=== PATIENT | female | born 1980 | race Caucasian/White ===

== ENCOUNTER 2019-12-15 16:21 | Emergency (ER) | payer SELFPAY ==
[~2019-12-15] VITALS: Ht 157.5 cm; Wt 66.7 kg
[~2019-12-15 16:21] MED LIST: ALBU0.632 IH; ALBU17AE23 IH; ALPR1T PO; BSP5T PO; CITA10TA70 PO; CLON0.5T60 PO; DVL250TEC1 PO; HCT25T PO; HYOS0.1217 PO; LITHIUM; LVT.025T PO; PRD20T PO; PRD5T PO; PROZAC; TIOT18CA IH; TRAZ150T42 PO; ZLP10T PO
[2019-12-15 16:50] VITALS: BP 123/73
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
[2019-12-15] MEDS ORDERED: HYDR-700 PO (17:35)
[2019-12-15] MEDS ORDERED: hydrOXYzine (VISTARIL/ATARAX) 25 MG capsule/tablet PO ONE (17:45)
--- OUTSIDE RECORDS SUMMARY | 2019-12-15 20:02 | XMS REPORT | Continuity of Care Document ---
Author Organization Unknown Address Unknown Phone Unavailable Allergies Active Description Code Type Severity Reaction Onset Reported/Identified Relationship to Patient Clinical Status Yes aspirin Drug Allergy N/A N/A 11/11/2008 Yes Benadryl Drug Allergy N/A N/A 11/11/2008 Yes ibuprofen Drug Allergy N/A N/A 11/11/2008 Yes latex OA N/A N/A 11/11/2008 Yes aspirin Drug Allergy 11/11/2008 Yes Benadryl Drug Allergy 11/11/2008 Yes ibuprofen Drug Allergy 11/11/2008 Yes latex OA 11/11/2008 Yes Depakote Drug Allergy N/A N/A 10/09/2010 Yes Depakote Drug Allergy 10/09/2010 Yes [place] [facility] Allergy 04/17/2012 Medications There is no data. Problems Date Dx Coded Attending Type Code Diagnosis Diagnosed By 02/11/2008 NIA MEREDITH DO 466 .0 BRONCHITIS, ACUTE 02/11/2008 466.0 BRON CHITIS, ACUTE 02/11/2008 466.0 BRON CHITIS, ACUTE 02/11/2008 YOVANY GARCIA APRN 466.0 BRONCHITIS, ACUTE 02/11/2008 RUSSELL PEREZ DDS 466.0 BRONCHITIS, ACUTE 02/11/2008 SHARA HDZ APRN 46 6.0 BRONCHITIS, ACUTE 02/11/2008 466.0 BRON CHITIS, ACUTE 02/11/2008 466.0 BRON CHITIS, ACUTE 02/11/2008 466.0 BRON CHITIS, ACUTE 02/11/2008 466.0 BRON CHITIS, ACUTE 02/11/2008 NIA MEREDITH DO 466 .0 BRONCHITIS, ACUTE 02/11/2008 HEMANT STEWART DOA K 466.0 BRONCHITIS, ACUTE 02/11/2008 HEMANT STEWART DOA K 466.0 BRONCHITIS, ACUTE 02/11/2008 PAT ROJO EUNICE K 466.0 BRONCHITIS, ACUTE 02/11/2008 PAT ROJO EUNICE K 466.0 BRONCHITIS, ACUTE 02/14/2008 WERDER DO, NIA F 296 .90 MOOD DISORDER 02/14/2008 MASOUD ROJO NIA F 300 .00 anxiety 02/14/2008 NIA MEREDITH DO F V58 .69 MEDICATION HIGH RISK 02/14/2008 296.90 MOO D DISORDER 02/14/2008 300.00 anxiety 02/14/2008 V58.69 MED ICATION HIGH RISK 02/14/2008 296.90 MOO D DISORDER 02/14/2008 300.00 anxiety 02/14/2008 V58.69 MED ICATION HIGH RISK 02/14/2008 GARCIASeng STARKS YOVANY R 296.90 MOOD DISORDER 02/14/2008 GARCIA APRN, YOVANY R 300.00 anxiety 02/14/2008 JOSE ALEXISMary YOVANY R V58.69 MEDICATION HIGH RISK 02/14/2008 MUOGHALU DDS, RUSSELL N 296.90 MOOD DISORDER 02/14/2008 MUOGHALU DDS, RUSSELL N 300.00 anxiety 02/14/2008 MUOGHALU DDS, RUSSELL N V58.69 MEDICATION HIGH RISK 02/14/2008 WILDERBECKY STARKS SHARA A 296.90 MOOD DISORDER 02/14/2008 WILDERBECKY STARKS, SHARA A 300.00 anxiety 02/14/2008 WILDERBECKY STARKS SHARA A V58.69 MEDICATION HIGH RISK 02/14/2008 296.90 MOO D DISORDER 02/14/2008 300.00 anxiety 02/14/2008 V58.69 MED ICATION HIGH RISK 02/14/2008 296.90 MOO D DISORDER 02/14/2008 300.00 anxiety 02/14/2008 V58.69 MED ICATION HIGH RISK 02/14/2008 296.90 MOO D DISORDER 02/14/2008 300.00 anxiety 02/14/2008 V58.69 MED ICATION HIGH RISK 02/14/2008 296.90 MOO D DISORDER 02/14/2008 300.00 anxiety 02/14/2008 V58.69 MED ICATION HIGH RISK 02/14/2008 NIA MEREDITH DO F 296 .90 MOOD DISORDER 02/14/2008 NIA MEREDITH DO F 300 .00 anxiety 02/14/2008 NIA MEREDITH DO V58 .69 MEDICATION HIGH RISK 02/14/2008 EUNICE STEWART DO 296.90 MOOD DISORDER 02/14/2008 STEWART DO, EUNICE K 300.00 anxiety 02/14/2008 STEWART DO, EUNICE K V58.69 MEDICATION HIGH RISK 02/14/2008 STEWART DO, EUNICE K 296.90 MOOD DISORDER 02/14/2008 STEWART DO, EUNICE K 300.00 anxiety 02/14/2008 STEWART DO, EUNICE K V58.69 MEDICATION HIGH RISK 02/14/2008 STEWART DO, EUNICE K 296.90 MOOD DISORDER 02/14/2008 STEWART DO, EUNICE K 300.00 anxiety 02/14/2008 STEWART DO, EUNICE K V58.69 MEDICATION HIGH RISK 02/14/2008 STEWART DO, EUNICE K 296.90 MOOD DISORDER 02/14/2008 STEWART DO, EUNICE K 300.00 anxiety 02/14/2008 STEWART DO, EUNICE K V58.69 MEDICATION HIGH RISK 03/03/2008 NIA MEREDITH DO 599 .0 URINARY TRACT INFECTION 03/03/2008 NIA MEREDITH DO 788 .1 DYSURIA 03/03/2008 599.0 URIN PADILLA TRACT INFECTION 03/03/2008 788.1 DYSURIA 03/03/2008 599.0 URIN PADILLA TRACT INFECTION 03/03/2008 788.1 DYSURIA 03/03/2008 YOVANY GARCIA APRN 599.0 URINARY TRACT INFECTION 03/03/2008 YOVANY GARCIA APRN 788.1 DYSURIA 03/03/2008 RUSSELL PEREZ DDS N 599.0 URINARY TRACT INFECTION 03/03/2008 RUSSELL PEREZ DDS N 788.1 DYSURIA 03/03/2008 SHARA HDZ APRN A 59 9.0 URINARY TRACT INFECTION 03/03/2008 SHARA HDZ APRN A 78 8.1 DYSURIA 03/03/2008 599.0 URIN PADILLA TRACT INFECTION 03/03/2008 788.1 DYSURIA 03/03/2008 599.0 URIN PADILLA TRACT INFECTION 03/03/2008 788.1 DYSURIA 03/03/2008 599.0 URIN PADILLA TRACT INFECTION 03/03/2008 788.1 DYSURIA 03/03/2008 599.0 URIN PADILLA TRACT INFECTION 03/03/2008 788.1 DYSURIA 03/03/2008 WERDER DO, NIA F 599 .0 URINARY TRACT INFECTION 03/03/2008 NIA MEREDITH DO F 788 .1 DYSURIA 03/03/2008 STEWART DO, EUNICE K 599.0 URINARY TRACT INFECTION 03/03/2008 STEWART DO, EUNICE K 788.1 DYSURIA 03/03/2008 STEWART DO, EUNICE K 599.0 URINARY TRACT INFECTION 03/03/2008 STEWART DO, EUNICE K 788.1 DYSURIA 03/03/2008 STEWART DO, EUNICE K 599.0 URINARY TRACT INFECTION 03/03/2008 STEWART DO, EUNICE K 788.1 DYSURIA 03/03/2008 STEWART DO, EUNICE K 599.0 URINARY TRACT INFECTION 03/03/2008 STEWART DO, EUNICE K 788.1 DYSURIA 06/18/2008 NIA MEREDITH DO F 256 .4 POLYCYSTIC OVARIES 06/18/2008 256.4 POLY CYSTIC OVARIES 06/18/2008 256.4 POLY CYSTIC OVARIES 06/18/2008 YOVANY GARCIA APRN 256.4 POLYCYSTIC OVARIES 06/18/2008 RUSSELL PEREZ DDS N 256.4 POLYCYSTIC OVARIES 06/18/2008 SHARA HDZ APRN A 25 6.4 POLYCYSTIC OVARIES 06/18/2008 256.4 POLY CYSTIC OVARIES 06/18/2008 256.4 POLY CYSTIC OVARIES 06/18/2008 256.4 POLY CYSTIC OVARIES 06/18/2008 256.4 POLY CYSTIC OVARIES 06/18/2008 NIA MEREDITH DO F 256 .4 POLYCYSTIC OVARIES 06/18/2008 STEWART DO, EUNICE K 256.4 POLYCYSTIC OVARIES 06/18/2008 STEWART DO, EUNICE K 256.4 POLYCYSTIC OVARIES 06/18/2008 STEWART DO, EUNICE K 256.4 POLYCYSTIC OVARIES 06/18/2008 STEWART DO, EUNICE K 256.4 POLYCYSTIC OVARIES 09/07/2008 NIA MEREDITH DO 493 .90 ASTHMA UNSPECIFIED 09/07/2008 NIA MEREDITH DO 786 .05 SHORTNESS OF BREATH 09/07/2008 493.90 AST HMA UNSPECIFIED 09/07/2008 786.05 ANA RTNESS OF BREATH 09/07/2008 493.90 AST HMA UNSPECIFIED 09/07/2008 786.05 ANA RTNESS OF BREATH 09/07/2008 YOVANY GARCIA APRN 493.90 ASTHMA UNSPECIFIED 09/07/2008 YOVANY GARCIA APRN 786.05 SHORTNESS OF BREATH 09/07/2008 JARRELLHALBartolo ALCANTARS, RUSSELL N 493.90 ASTHMA UNSPECIFIED 09/07/2008 KYOGHALBartolo ALCANTARS, RUSSELL N 786.05 SHORTNESS OF BREATH 09/07/2008 YANCY HDZ APRNIDI A 493.90 ASTHMA UNSPECIFIED 09/07/2008 WILDER STARKS, SHARA A 786.05 SHORTNESS OF BREATH 09/07/2008 493.90 AST HMA UNSPECIFIED 09/07/2008 786.05 ANA RTNESS OF BREATH 09/07/2008 493.90 AST HMA UNSPECIFIED 09/07/2008 786.05 ANA RTNESS OF BREATH 09/07/2008 493.90 AST HMA UNSPECIFIED 09/07/2008 786.05 ANA RTNESS OF BREATH 09/07/2008 493.90 AST HMA UNSPECIFIED 09/07/2008 786.05 ANA RTNESS OF BREATH 09/07/2008 NIA MEREDITH DO F 493 .90 ASTHMA UNSPECIFIED 09/07/2008 NIA MEREDITH DO F 786 .05 SHORTNESS OF BREATH 09/07/2008 STEWART DO, EUNICE K 493.90 ASTHMA UNSPECIFIED 09/07/2008 STEWART DO, EUNICE K 786.05 SHORTNESS OF BREATH 09/07/2008 STEWART DO, EUNICE K 493.90 ASTHMA UNSPECIFIED 09/07/2008 STEWART DO, EUNICE K 786.05 SHORTNESS OF BREATH 09/07/2008 STEWART DO, EUNICE K 493.90 ASTHMA UNSPECIFIED 09/07/2008 STEWART DO, EUNICE K 786.05 SHORTNESS OF BREATH 09/07/2008 STEWART DO, EUNICE K 493.90 ASTHMA UNSPECIFIED 09/07/2008 STEWART DO, EUNICE K 786.05 SHORTNESS OF BREATH 06/29/2009 NIA MEREDITH DO F 461 .9 ACUTE SINUSITIS, UNSPECIFIED 06/29/2009 461.9 ACUT E SINUSITIS, UNSPECIFIED 06/29/2009 461.9 ACUT E SINUSITIS, UNSPECIFIED 06/29/2009 YOVANY GARCIA APRN 461.9 ACUTE SINUSITIS, UNSPECIFIED 06/29/2009 RUSSELL PEREZ DDS N 461.9 ACUTE SINUSITIS, UNSPECIFIED 06/29/2009 SHARA HDZ APRN A 46 1.9 ACUTE SINUSITIS, UNSPECIFIED 06/29/2009 461.9 ACUT E SINUSITIS, UNSPECIFIED 06/29/2009 461.9 ACUT E SINUSITIS, UNSPECIFIED 06/29/2009 461.9 ACUT E SINUSITIS, UNSPECIFIED 06/29/2009 461.9 ACUT E SINUSITIS, UNSPECIFIED 06/29/2009 NIA MEREDITH DO F 461 .9 ACUTE SINUSITIS, UNSPECIFIED 06/29/2009 STEWART DO, EUNICE K 461.9 ACUTE SINUSITIS, UNSPECIFIED 06/29/2009 STEWART DO, EUNICE K 461.9 ACUTE SINUSITIS, UNSPECIFIED 06/29/2009 STEWART DO, EUNICE K 461.9 ACUTE SINUSITIS, UNSPECIFIED 06/29/2009 STEWART DO, EUNICE K 461.9 ACUTE SINUSITIS, UNSPECIFIED 08/31/2009 NIA MEREDITH DO F 569 .3 RECTAL HEMORRHAGE 08/31/2009 NIA MEREDITH DO F 787 .91 CHRONIC DIARRHEA OF UNKNOWN ORIGIN 08/31/2009 NIA MEREDITH DO 789 .00 abdominal pain feels crampy / colicky 08/31/2009 569.3 RECT AL HEMORRHAGE 08/31/2009 787.91 CHR ONIC DIARRHEA OF UNKNOWN ORIGIN 08/31/2009 789.00 abd ominal pain feels crampy / colicky 08/31/2009 569.3 RECT AL HEMORRHAGE 08/31/2009 787.91 CHR ONIC DIARRHEA OF UNKNOWN ORIGIN 08/31/2009 789.00 abd ominal pain feels crampy / colicky 08/31/2009 YOVANY GARCIA APRN 569.3 RECTAL HEMORRHAGE 08/31/2009 YOVANY GARCIA APRN 787.91 CHRONIC DIARRHEA OF UNKNOWN ORIGIN 08/31/2009 YOVANY GARCIA APRN 789.00 abdominal pain feels crampy / colicky 08/31/2009 MUOGHALRUSSELL Mcfarland DDS N 569.3 RECTAL HEMORRHAGE 08/31/2009 YKOGHALU RUSSELL ALLISON N 787.91 CHRONIC DIARRHEA OF UNKNOWN ORIGIN 08/31/2009 KYOGHALU ESTEFANY, RUSSELL N 789.00 abdominal pain feels crampy / colicky 08/31/2009 WILDER STARKS SHARA A 56 9.3 RECTAL HEMORRHAGE 08/31/2009 WILDER STARKS, SHARA A 787.91 CHRONIC DIARRHEA OF UNKNOWN ORIGIN 08/31/2009 YANCY HDZ APRNIDI A 789.00 abdominal pain feels crampy / colicky 08/31/2009 569.3 RECT AL HEMORRHAGE 08/31/2009 787.91 CHR ONIC DIARRHEA OF UNKNOWN ORIGIN 08/31/2009 789.00 abd ominal pain feels crampy / colicky 08/31/2009 569.3 RECT AL HEMORRHAGE 08/31/2009 787.91 CHR ONIC DIARRHEA OF UNKNOWN ORIGIN 08/31/2009 789.00 abd ominal pain feels crampy / colicky 08/31/2009 569.3 RECT AL HEMORRHAGE 08/31/2009 787.91 CHR ONIC DIARRHEA OF UNKNOWN ORIGIN 08/31/2009 789.00 abd ominal pain feels crampy / colicky 08/31/2009 569.3 RECT AL HEMORRHAGE 08/31/2009 787.91 CHR ONIC DIARRHEA OF UNKNOWN ORIGIN 08/31/2009 789.00 abd ominal pain feels crampy / colicky 08/31/2009 NIA MEREDITH DO F 569 .3 RECTAL HEMORRHAGE 08/31/2009 NIA MEREDITH DO F 787 .91 CHRONIC DIARRHEA OF UNKNOWN ORIGIN 08/31/2009 NIA MEREDITH DO F 789 .00 abdominal pain feels crampy / colicky 08/31/2009 EUNICE STEWART DO K 569.3 RECTAL HEMORRHAGE 08/31/2009 EUNICE STEWART DO K 787.91 CHRONIC DIARRHEA OF UNKNOWN ORIGIN 08/31/2009 HEMANT STEWART DOA K 789.00 abdominal pain feels crampy / colicky 08/31/2009 HEMANT STEWART DOA K 569.3 RECTAL HEMORRHAGE 08/31/2009 HEMANT STEWART DOA K 787.91 CHRONIC DIARRHEA OF UNKNOWN ORIGIN 08/31/2009 HEMANT STEWART DOA K 789.00 abdominal pain feels crampy / colicky 08/31/2009 HEMANT STEWART DOA K 569.3 RECTAL HEMORRHAGE 08/31/2009 HEMANT STEWART DOA K 787.91 CHRONIC DIARRHEA OF UNKNOWN ORIGIN 08/31/2009 EUNICE STEWART DO K 789.00 abdominal pain feels crampy / colicky 08/31/2009 PAT ROJOEUNICE K 569.3 RECTAL HEMORRHAGE 08/31/2009 PAT ROJOEUNICE K 787.91 CHRONIC DIARRHEA OF UNKNOWN ORIGIN 08/31/2009 PAT ROJOEUNICE 789.00 abdominal pain feels crampy / colicky 09/12/2010 TOMMOTLEY NIA F 305 .1 TOBACCO ABUSE 09/12/2010 ED MEREDITH DOEN F 309 .29 EXCITABILITY 09/12/2010 MASOUD ROJO NIA F 780 .50 SLEEP DISTURBANCE, UNSPECIFIED 09/12/2010 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1 TOBACCO ABUSE 09/12/2010 SHARA HDZ APRN A 309.29 EXCITABILITY 09/12/2010 SHARA HDZ APRN 780.50 SLEEP DISTURBANCE, UNSPECIFIED 09/12/2010 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 09/12/2010 309.29 EXC ITABILITY 09/12/2010 780.50 SLE EP DISTURBANCE, UNSPECIFIED 09/12/2010 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 09/12/2010 309.29 EXC ITABILITY 09/12/2010 780.50 SLE EP DISTURBANCE, UNSPECIFIED 09/12/2010 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 09/12/2010 309.29 EXC ITABILITY 09/12/2010 780.50 SLE EP DISTURBANCE, UNSPECIFIED 09/12/2010 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 09/12/2010 309.29 EXC ITABILITY 09/12/2010 780.50 SLE EP DISTURBANCE, UNSPECIFIED 09/12/2010 TOMEVARISTO NIA F 305 .1 TOBACCO ABUSE 09/12/2010 MASOUD ROJO NIA F 309 .29 EXCITABILITY 09/12/2010 MASOUD ROJO NIA F 780 .50 SLEEP DISTURBANCE, UNSPECIFIED 09/12/2010 STEWART DO, EUNICE K 305.1 TOBACCO ABUSE 09/12/2010 STEWART DO, EUNICE K 309.29 EXCITABILITY 09/12/2010 STEWART DO, EUNICE K 780.50 SLEEP DISTURBANCE, UNSPECIFIED 09/12/2010 STEWART DO, EUNICE K 305.1 TOBACCO ABUSE 09/12/2010 STEWART DO, EUNICE K 309.29 EXCITABILITY 09/12/2010 STEWART DO, EUNICE K 780.50 SLEEP DISTURBANCE, UNSPECIFIED 09/12/2010 STEWART DO, EUNICE K 305.1 TOBACCO ABUSE 09/12/2010 STEWART DO, EUNICE K 309.29 EXCITABILITY 09/12/2010 STEWART DO, EUNICE K 780.50 SLEEP DISTURBANCE, UNSPECIFIED 09/12/2010 STEWART DO, EUNICE K 305.1 TOBACCO ABUSE 09/12/2010 STEWART DO, EUNICE K 309.29 EXCITABILITY 09/12/2010 STEWART DO, EUNICE K 780.50 SLEEP DISTURBANCE, UNSPECIFIED 10/23/2010 NIA MEREDITH DO F 296 .00 BIPOLAR I DISORDER SINGLE MANIC EPISODE UNSPECIFIED 10/23/2010 296.00 BIP OLAR I DISORDER SINGLE MANIC EPISODE UNSPECIFIED 10/23/2010 296.00 BIP OLAR I DISORDER SINGLE MANIC EPISODE UNSPECIFIED 10/23/2010 YOVANY GARCIA APRN 296.00 BIPOLAR I DISORDER SINGLE MANIC EPISODE UNSPECIFIED 10/23/2010 RUSSELL PEREZ DDS 296.00 BIPOLAR I DISORDER SINGLE MANIC EPISODE UNSPECIFIED 10/23/2010 SHARA HDZ APRN 296.00 BIPOLAR I DISORDER SINGLE MANIC EPISODE UNSPECIFIED 10/23/2010 296.00 BIP OLAR I DISORDER SINGLE MANIC EPISODE UNSPECIFIED 10/23/2010 296.00 BIP OLAR I DISORDER SINGLE MANIC EPISODE UNSPECIFIED 10/23/2010 296.00 BIP OLAR I DISORDER SINGLE MANIC EPISODE UNSPECIFIED 10/23/2010 296.00 BIP OLAR I DISORDER SINGLE MANIC EPISODE UNSPECIFIED 10/23/2010 NIA MEREDITH DO F 296 .00 BIPOLAR I DISORDER SINGLE MANIC EPISODE UNSPECIFIED 10/23/2010 EUNICE STEWART DO K 296.00 BIPOLAR I DISORDER SINGLE MANIC EPISODE UNSPECIFIED 10/23/2010 EUNICE STEWART DO K 296.00 BIPOLAR I DISORDER SINGLE MANIC EPISODE UNSPECIFIED 10/23/2010 EUNICE STEWART DO K 296.00 BIPOLAR I DISORDER SINGLE MANIC EPISODE UNSPECIFIED 10/23/2010 EUNICE STEWART DO K 296.00 BIPOLAR I DISORDER SINGLE MANIC EPISODE UNSPECIFIED 10/30/2010 NIA MEREDITH DO F 296 .89 MO BIPOLAR II 10/30/2010 NIA MEREDITH DO F 309 .81 AN PTSD 10/30/2010 296.89 MO BIPOLAR II 10/30/2010 309.81 AN PTSD 10/30/2010 296.89 MO BIPOLAR II 10/30/2010 309.81 AN PTSD 10/30/2010 YOVANY GARCIA APRN R 296.89 MO BIPOLAR II 10/30/2010 YOVANY GARCIA APRN 309.81 AN PTSD 10/30/2010 RUSSELL PEREZ DDS N 296.89 MO BIPOLAR II 10/30/2010 MERCEDES PEREZ DDSRA N 309.81 AN PTSD 10/30/2010 SHARA HDZ APRN A 296.89 MO BIPOLAR II 10/30/2010 SHARA HDZ APRN A 309.81 AN PTSD 10/30/2010 296.89 MO BIPOLAR II 10/30/2010 309.81 AN PTSD 10/30/2010 296.89 MO BIPOLAR II 10/30/2010 309.81 AN PTSD 10/30/2010 296.89 MO BIPOLAR II 10/30/2010 309.81 AN PTSD 10/30/2010 296.89 MO BIPOLAR II 10/30/2010 309.81 AN PTSD 10/30/2010 NIA MEREDITH DO F 296 .89 MO BIPOLAR II 10/30/2010 NIA MEREDITH DO F 309 .81 AN PTSD 10/30/2010 EUNICE STEWART DO K 296.89 MO BIPOLAR II 10/30/2010 EUNICE STEWART DO K 309.81 AN PTSD 10/30/2010 EUNICE STEWART DO K 296.89 MO BIPOLAR II 10/30/2010 STEWART DO, EUNICE K 309.81 AN PTSD 10/30/2010 STEWART DO, EUNICE K 296.89 MO BIPOLAR II 10/30/2010 STEWART DO, EUNICE K 309.81 AN PTSD 10/30/2010 STEWART DO, EUNICE K 296.89 MO BIPOLAR II 10/30/2010 STEWART DO, EUNICE K 309.81 AN PTSD 11/24/2010 NIA MEREDITH DO F 287 .0 ALLERGIC PURPURA 11/24/2010 NIA MEREDITH DO F 995 .27 OTHER DRUG ALLERGY 11/24/2010 287.0 DIMAS RGIC PURPURA 11/24/2010 995.27 OTH ER DRUG ALLERGY 11/24/2010 287.0 DIMAS RGIC PURPURA 11/24/2010 995.27 OTH ER DRUG ALLERGY 11/24/2010 GARCIAZA STARKS YOVANY R 287.0 ALLERGIC PURPURA 11/24/2010 GARCIA RAUDEL YOVANY R 995.27 OTHER DRUG ALLERGY 11/24/2010 MUOGHALU DDS, RUSSELL N 287.0 ALLERGIC PURPURA 11/24/2010 MUOGHALU DDS, RUSSELL N 995.27 OTHER DRUG ALLERGY 11/24/2010 WILDER DOCTOR OSTEOPATHIC, SHARA A 28 7.0 ALLERGIC PURPURA 11/24/2010 WILDER DOCTOR OSTEOPATHIC, SHARA A 995.27 OTHER DRUG ALLERGY 11/24/2010 287.0 DIMAS RGIC PURPURA 11/24/2010 995.27 OTH ER DRUG ALLERGY 11/24/2010 287.0 DIMAS RGIC PURPURA 11/24/2010 995.27 OTH ER DRUG ALLERGY 11/24/2010 287.0 DIMAS RGIC PURPURA 11/24/2010 995.27 OTH ER DRUG ALLERGY 11/24/2010 287.0 DIMAS RGIC PURPURA 11/24/2010 995.27 OTH ER DRUG ALLERGY 11/24/2010 NIA MEREDITH DO F 287 .0 ALLERGIC PURPURA 11/24/2010 NIA MEREDITH DO F 995 .27 OTHER DRUG ALLERGY 11/24/2010 STEWART DO, EUNICE K 287.0 ALLERGIC PURPURA 11/24/2010 STEWART DO, EUNICE K 995.27 OTHER DRUG ALLERGY 11/24/2010 STEWART DO EUNICE K 287.0 ALLERGIC PURPURA 11/24/2010 STEWART DO EUNICE K 995.27 OTHER DRUG ALLERGY 11/24/2010 STEWART DO, EUNICE K 287.0 ALLERGIC PURPURA 11/24/2010 STEWART DO, EUNICE K 995.27 OTHER DRUG ALLERGY 11/24/2010 STEWART DO, EUNICE K 287.0 ALLERGIC PURPURA 11/24/2010 STEWART DO, EUNICE K 995.27 OTHER DRUG ALLERGY 01/24/2011 NIA MEREDITH DO F 244 .9 HYPOTHYROIDISM 01/24/2011 244.9 HYPO THYROIDISM 01/24/2011 244.9 HYPO THYROIDISM 01/24/2011 YOVANY GARCIA APRN 244.9 HYPOTHYROIDISM 01/24/2011 RUSSELL PEREZ DDS N 244.9 HYPOTHYROIDISM 01/24/2011 SHARA HDZ APRN 24 4.9 HYPOTHYROIDISM 01/24/2011 244.9 HYPO THYROIDISM 01/24/2011 244.9 HYPO THYROIDISM 01/24/2011 244.9 HYPO THYROIDISM 01/24/2011 244.9 HYPO THYROIDISM 01/24/2011 NIA MEREDITH DO F 244 .9 HYPOTHYROIDISM 01/24/2011 STEWART DO, EUNICE K 244.9 HYPOTHYROIDISM 01/24/2011 STEWART DO, EUNICE K 244.9 HYPOTHYROIDISM 01/24/2011 STEWART DO, EUNICE K 244.9 HYPOTHYROIDISM 01/24/2011 STEWART DO, EUNICE K 244.9 HYPOTHYROIDISM 06/19/2011 NIA MEREDITH DO F 784 .2 SWELLING MASS OR LUMP IN HEAD AND NECK 06/19/2011 784.2 SWEL LING MASS OR LUMP IN HEAD AND NECK 06/19/2011 784.2 SWEL LING MASS OR LUMP IN HEAD AND NECK 06/19/2011 YOVANY GARCIA APRN 784.2 SWELLING MASS OR LUMP IN HEAD AND NECK 06/19/2011 RUSSELL PEREZ DDS N 784.2 SWELLING MASS OR LUMP IN HEAD AND NECK 06/19/2011 SHARA HDZ APRN A 78 4.2 SWELLING MASS OR LUMP IN HEAD AND NECK 06/19/2011 784.2 SWEL LING MASS OR LUMP IN HEAD AND NECK 06/19/2011 784.2 SWEL LING MASS OR LUMP IN HEAD AND NECK 06/19/2011 784.2 SWEL LING MASS OR LUMP IN HEAD AND NECK 06/19/2011 784.2 SWEL LING MASS OR LUMP IN HEAD AND NECK 06/19/2011 NIA MEREDITH DO F 784 .2 SWELLING MASS OR LUMP IN HEAD AND NECK 06/19/2011 EUNICE STEWART DO K 784.2 SWELLING MASS OR LUMP IN HEAD AND NECK 06/19/2011 STEWART DO, EUNICE K 784.2 SWELLING MASS OR LUMP IN HEAD AND NECK 06/19/2011 STEWART HEMANT ROJOA K 784.2 SWELLING MASS OR LUMP IN HEAD AND NECK 06/19/2011 STEWART , EUNICE K 784.2 SWELLING MASS OR LUMP IN HEAD AND NECK 2011 NIA MEREDITH DO 533 .90 PEPTIC ULCER OF UNSPECIFIED SITE UNSPECIFIED ACUTE OR CHRONIC WITHOUT HEMORRHAGE OR PERFORATION WITHOUT OBSTRUCTION 2011 533.90 PEP TIC ULCER OF UNSPECIFIED SITE UNSPECIFIED ACUTE OR CHRONIC WITHOUT HEMORRHAGE OR PERFORATION WITHOUT OBSTRUCTION 2011 533.90 PEP TIC ULCER OF UNSPECIFIED SITE UNSPECIFIED ACUTE OR CHRONIC WITHOUT HEMORRHAGE OR PERFORATION WITHOUT OBSTRUCTION 2011 YOVANY GARCIA APRN 533.90 PEPTIC ULCER OF UNSPECIFIED SITE UNSPECI FIED ACUTE OR CHRONIC WITHOUT HEMORRHAGE OR PERFORATION WITHOUT OBSTRUCTION 2011 RUSSELL PEREZ DDS 533.90 PEPTIC ULCER OF UNSPECIFIED SITE UNSPECI FIED ACUTE OR CHRONIC WITHOUT HEMORRHAGE OR PERFORATION WITHOUT OBSTRUCTION 2011 SHARA HDZ APRN 533.90 PEPTIC ULCER OF UNSPECIFIED SITE UNSPECI FIED ACUTE OR CHRONIC WITHOUT HEMORRHAGE OR PERFORATION WITHOUT OBSTRUCTION 2011 533.90 PEP TIC ULCER OF UNSPECIFIED SITE UNSPECIFIED ACUTE OR CHRONIC WITHOUT HEMORRHAGE OR PERFORATION WITHOUT OBSTRUCTION 2011 533.90 PEP TIC ULCER OF UNSPECIFIED SITE UNSPECIFIED ACUTE OR CHRONIC WITHOUT HEMORRHAGE OR PERFORATION WITHOUT OBSTRUCTION 2011 533.90 PEP TIC ULCER OF UNSPECIFIED SITE UNSPECIFIED ACUTE OR CHRONIC WITHOUT HEMORRHAGE OR PERFORATION WITHOUT OBSTRUCTION 2011 533.90 PEP TIC ULCER OF UNSPECIFIED SITE UNSPECIFIED ACUTE OR CHRONIC WITHOUT HEMORRHAGE OR PERFORATION WITHOUT OBSTRUCTION 2011 NIA MEREDITH DO 533 .90 PEPTIC ULCER OF UNSPECIFIED SITE UNSPECIFIED ACUTE OR CHRONIC WITHOUT HEMORRHAGE OR PERFORATION WITHOUT OBSTRUCTION 2011 EUNICE STEWART DO 533.90 PEPTIC ULCER OF UNSPECIFIED SITE UNSPECIFIED ACUTE OR CHRONIC WITHOUT HEMORRHAGE OR PERFORATION WITHOUT OBSTRUCTION 2011 EUNICE STEWART DO 533.90 PEPTIC ULCER OF UNSPECIFIED SITE UNSPECIFIED ACUTE OR CHRONIC WITHOUT HEMORRHAGE OR PERFORATION WITHOUT OBSTRUCTION 2011 EUNICE STEWART DO K 533.90 PEPTIC ULCER OF UNSPECIFIED SITE UNSPECIFIED ACUTE OR CHRONIC WITHOUT HEMORRHAGE OR PERFORATION WITHOUT OBSTRUCTION 2011 EUNICE STEWART DO Lefty 533.90 PEPTIC ULCER OF UNSPECIFIED SITE UNSPECIFIED ACUTE OR CHRONIC WITHOUT HEMORRHAGE OR PERFORATION WITHOUT OBSTRUCTION 12/17/2011 NIA MEREDITH DO F 625 .6 STRESS INCONTINENCE FEMALE 12/17/2011 NIA MEREDITH DO F 788 .20 RETENTION OF URINE UNSPECIFIED 12/17/2011 NIA MEREDITH DO Arlyn V76 .2 CERVICAL CANCER SCREENING (PAP SMEAR) 12/17/2011 625.6 STRE SS INCONTINENCE FEMALE 12/17/2011 788.20 RET ENTION OF URINE UNSPECIFIED 12/17/2011 V76.2 CERV ICAL CANCER SCREENING (PAP SMEAR) 12/17/2011 625.6 STRE SS INCONTINENCE FEMALE 12/17/2011 788.20 RET ENTION OF URINE UNSPECIFIED 12/17/2011 V76.2 CERV ICAL CANCER SCREENING (PAP SMEAR) 12/17/2011 YOVANY GARCIA APRN 625.6 STRESS INCONTINENCE FEMALE 12/17/2011 YOVANY GARCIA APRN 788.20 RETENTION OF URINE UNSPECIFIED 12/17/2011 YOVANY GARCIA APRN V76.2 CERVICAL CANCER SCREENING (PAP SMEAR) 12/17/2011 RUSSELL PEREZ DDS N 625.6 STRESS INCONTINENCE FEMALE 12/17/2011 RUSSELL PEERZ DDS N 788.20 RETENTION OF URINE UNSPECIFIED 12/17/2011 RUSSELL PEREZ DDS N V76.2 CERVICAL CANCER SCREENING (PAP SMEAR) 12/17/2011 SHARA HDZ APRN A 62 5.6 STRESS INCONTINENCE FEMALE 12/17/2011 SHARA HDZ APRN 788.20 RETENTION OF URINE UNSPECIFIED 12/17/2011 SHARA HDZ APRN V7 6.2 CERVICAL CANCER SCREENING (PAP SMEAR) 12/17/2011 625.6 STRE SS INCONTINENCE FEMALE 12/17/2011 788.20 RET ENTION OF URINE UNSPECIFIED 12/17/2011 V76.2 CERV ICAL CANCER SCREENING (PAP SMEAR) 12/17/2011 625.6 STRE SS INCONTINENCE FEMALE 12/17/2011 788.20 RET ENTION OF URINE UNSPECIFIED 12/17/2011 V76.2 CERV ICAL CANCER SCREENING (PAP SMEAR) 12/17/2011 625.6 STRE SS INCONTINENCE FEMALE 12/17/2011 788.20 RET ENTION OF URINE UNSPECIFIED 12/17/2011 V76.2 CERV ICAL CANCER SCREENING (PAP SMEAR) 12/17/2011 625.6 STRE SS INCONTINENCE FEMALE 12/17/2011 788.20 RET ENTION OF URINE UNSPECIFIED 12/17/2011 V76.2 CERV ICAL CANCER SCREENING (PAP SMEAR) 12/17/2011 NIA MEREDITH DO 625 .6 STRESS INCONTINENCE FEMALE 12/17/2011 NIA MEREDITH DO 788 .20 RETENTION OF URINE UNSPECIFIED 12/17/2011 NIA MEREDITH DO V76 .2 CERVICAL CANCER SCREENING (PAP SMEAR) 12/17/2011 PAT ROJO EUNICE K 625.6 STRESS INCONTINENCE FEMALE 12/17/2011 PAT ROJO, EUNICE K 788.20 RETENTION OF URINE UNSPECIFIED 12/17/2011 STEWART DO, EUNICE K V76.2 CERVICAL CANCER SCREENING (PAP SMEAR) 12/17/2011 STEWART DO EUNICE K 625.6 STRESS INCONTINENCE FEMALE 12/17/2011 STEWART DO, EUNICE K 788.20 RETENTION OF URINE UNSPECIFIED 12/17/2011 STEWART DO, EUNICE K V76.2 CERVICAL CANCER SCREENING (PAP SMEAR) 12/17/2011 STEWART DO EUNICE K 625.6 STRESS INCONTINENCE FEMALE 12/17/2011 STEWART DO, EUNICE K 788.20 RETENTION OF URINE UNSPECIFIED 12/17/2011 STEWART DO, EUNICE K V76.2 CERVICAL CANCER SCREENING (PAP SMEAR) 12/17/2011 STEWART DO EUNICE K 625.6 STRESS INCONTINENCE FEMALE 12/17/2011 STEWART DO, EUNICE K 788.20 RETENTION OF URINE UNSPECIFIED 12/17/2011 STEWART DO, EUNICE K V76.2 CERVICAL CANCER SCREENING (PAP SMEAR) 12/24/2011 NIA MEREDITH DO 578 .1 HEMATOCHEZIA 12/24/2011 NIA MEREDITH DO 780 .60 FEVER, UNSPECIFIED 12/24/2011 NIA MEREDITH DO F 787 .01 NAUSEA WITH VOMITING 12/24/2011 NIA MEREDITH DO F 789 .07 ABDOMINAL PAIN GENERALIZED 12/24/2011 578.1 JABIER TOCHEZIA 12/24/2011 780.60 FEV ER, UNSPECIFIED 12/24/2011 787.01 REGULO SEA WITH VOMITING 12/24/2011 789.07 ABD OMINAL PAIN GENERALIZED 12/24/2011 578.1 JABIER TOCHEZIA 12/24/2011 780.60 FEV ER, UNSPECIFIED 12/24/2011 787.01 REGULO SEA WITH VOMITING 12/24/2011 789.07 ABD OMINAL PAIN GENERALIZED 12/24/2011 YOVANY GARCIA APRN 578.1 HEMATOCHEZIA 12/24/2011 YOVANY GARCIA APRN 780.60 FEVER, UNSPECIFIED 12/24/2011 YOVANY GARCIA APRN 787.01 NAUSEA WITH VOMITING 12/24/2011 YOVANY GARCIA APRN 789.07 ABDOMINAL PAIN GENERALIZED 12/24/2011 MUOGHALU DDS, RUSSELL N 578.1 HEMATOCHEZIA 12/24/2011 MUOGHALU DDS, RUSSELL N 780.60 FEVER, UNSPECIFIED 12/24/2011 MUOGHALU DDS, RUSSELL N 787.01 NAUSEA WITH VOMITING 12/24/2011 MUOGHALU DDS, RUSSELL N 789.07 ABDOMINAL PAIN GENERALIZED 12/24/2011 SHARA HDZ APRN A 57 8.1 HEMATOCHEZIA 12/24/2011 SHARA HDZ APRN A 780.60 FEVER, UNSPECIFIED 12/24/2011 WILDER STARKS, SHARA A 787.01 NAUSEA WITH VOMITING 12/24/2011 YANCY HDZ APRNIDI A 789.07 ABDOMINAL PAIN GENERALIZED 12/24/2011 578.1 JABIER TOCHEZIA 12/24/2011 780.60 FEV ER, UNSPECIFIED 12/24/2011 787.01 REGULO SEA WITH VOMITING 12/24/2011 789.07 ABD OMINAL PAIN GENERALIZED 12/24/2011 578.1 JABIER TOCHEZIA 12/24/2011 780.60 FEV ER, UNSPECIFIED 12/24/2011 787.01 REGULO SEA WITH VOMITING 12/24/2011 789.07 ABD OMINAL PAIN GENERALIZED 12/24/2011 578.1 JABIER TOCHEZIA 12/24/2011 780.60 FEV ER, UNSPECIFIED 12/24/2011 787.01 REGULO SEA WITH VOMITING 12/24/2011 789.07 ABD OMINAL PAIN GENERALIZED 12/24/2011 578.1 JABIER TOCHEZIA 12/24/2011 780.60 FEV ER, UNSPECIFIED 12/24/2011 787.01 REGULO SEA WITH VOMITING 12/24/2011 789.07 ABD OMINAL PAIN GENERALIZED 12/24/2011 WERDER DONIA F 578 .1 HEMATOCHEZIA 12/24/2011 TOMDER NIA ROJO F 780 .60 FEVER, UNSPECIFIED 12/24/2011 TOMDER DONIA F 787 .01 NAUSEA WITH VOMITING 12/24/2011 NIA MEREDITH DO F 789 .07 ABDOMINAL PAIN GENERALIZED 12/24/2011 STEWART DO, EUNICE K 578.1 HEMATOCHEZIA 12/24/2011 STEWART DO, EUNICE K 780.60 FEVER, UNSPECIFIED 12/24/2011 STEWART DO, EUNICE K 787.01 NAUSEA WITH VOMITING 12/24/2011 STEWART DO, EUNICE K 789.07 ABDOMINAL PAIN GENERALIZED 12/24/2011 STEWART DO, EUNICE K 578.1 HEMATOCHEZIA 12/24/2011 STEWART DO, EUNICE K 780.60 FEVER, UNSPECIFIED 12/24/2011 STEWART DO, EUNICE K 787.01 NAUSEA WITH VOMITING 12/24/2011 STEWART DO, EUNICE K 789.07 ABDOMINAL PAIN GENERALIZED 12/24/2011 STEWART DO, EUNICE K 578.1 HEMATOCHEZIA 12/24/2011 STEWART DO, EUNICE K 780.60 FEVER, UNSPECIFIED 12/24/2011 STEWART DO, EUNICE K 787.01 NAUSEA WITH VOMITING 12/24/2011 STEWART DO, EUNICE K 789.07 ABDOMINAL PAIN GENERALIZED 12/24/2011 STEWART DO, EUNICE K 578.1 HEMATOCHEZIA 12/24/2011 STEWART DO, EUNICE K 780.60 FEVER, UNSPECIFIED 12/24/2011 STEWART DO, EUNICE K 787.01 NAUSEA WITH VOMITING 12/24/2011 STEWART DO, EUNICE K 789.07 ABDOMINAL PAIN GENERALIZED 01/10/2012 NIA MEREDITH DO 719 .47 PAIN IN JOINT INVOLVING ANKLE AND FOOT 01/10/2012 719.47 LUCA N IN JOINT INVOLVING ANKLE AND FOOT 01/10/2012 719.47 LUCA N IN JOINT INVOLVING ANKLE AND FOOT 01/10/2012 YOVANY GARCIA APRN 719.47 PAIN IN JOINT INVOLVING ANKLE AND FOOT 01/10/2012 KYRUSSELL TRIPLETT DDS 719.47 PAIN IN JOINT INVOLVING ANKLE AND FOOT 01/10/2012 SHARA HDZ APRN 719.47 PAIN IN JOINT INVOLVING ANKLE AND FOOT 01/10/2012 719.47 LUCA N IN JOINT INVOLVING ANKLE AND FOOT 01/10/2012 719.47 LUCA N IN JOINT INVOLVING ANKLE AND FOOT 01/10/2012 719.47 LUCA N IN JOINT INVOLVING ANKLE AND FOOT 01/10/2012 719.47 LUCA N IN JOINT INVOLVING ANKLE AND FOOT 01/10/2012 NIA MEREDITH DO 719 .47 PAIN IN JOINT INVOLVING ANKLE AND FOOT 01/10/2012 EUNICE STEWART DO 719.47 PAIN IN JOINT INVOLVING ANKLE AND FOOT 01/10/2012 EUNICE STEWART DO 719.47 PAIN IN JOINT INVOLVING ANKLE AND FOOT 01/10/2012 EUNICE STEWART DO 719.47 PAIN IN JOINT INVOLVING ANKLE AND FOOT 01/10/2012 EUNICE STEWART DO 719.47 PAIN IN JOINT INVOLVING ANKLE AND FOOT 02/01/2012 NIA MEREDITH DO 530 .81 GERD 02/01/2012 NIA MEREDITH DO 535 .50 GASTRITIS UNSPEC 02/01/2012 NIA MEREDITH DO 682 .8 CELLULITIS AND ABSCESS OF OTHER SPECIFIED SITES 02/01/2012 530.81 GERD 02/01/2012 535.50 GAS TRITIS UNSPEC 02/01/2012 682.8 CELL ULITIS AND ABSCESS OF OTHER SPECIFIED SITES 02/01/2012 530.81 GERD 02/01/2012 535.50 GAS TRITIS UNSPEC 02/01/2012 682.8 CELL ULITIS AND ABSCESS OF OTHER SPECIFIED SITES 02/01/2012 YOVANY GARCIA APRN 530.81 GERD 02/01/2012 YOVANY GARCIA APRN 535.50 GASTRITIS UNSPEC 02/01/2012 YOVANY GARCIA APRN 682.8 CELLULITIS AND ABSCESS OF OTHER SPECIFIED SITES 02/01/2012 MUOGHALU DDS, RUSSELL N 530.81 GERD 02/01/2012 MUOGHALU DDS, RUSSELL N 535.50 GASTRITIS UNSPEC 02/01/2012 MUOGHALU DDS, RUSSELL N 682.8 CELLULITIS AND ABSCESS OF OTHER SPECIFIED SITES 02/01/2012 WILDER DOCTOR OSTEOPATHIC, SHARA A 530.81 GERD 02/01/2012 WILDER DOCTOR OSTEOPATHIC, SHARA A 535.50 GASTRITIS UNSPEC 02/01/2012 WILDER DOCTOR OSTEOPATHIC, SHARA A 68 2.8 CELLULITIS AND ABSCESS OF OTHER SPECIFIED SITES 02/01/2012 530.81 GERD 02/01/2012 535.50 GAS TRITIS UNSPEC 02/01/2012 682.8 CELL ULITIS AND ABSCESS OF OTHER SPECIFIED SITES 02/01/2012 530.81 GERD 02/01/2012 535.50 GAS TRITIS UNSPEC 02/01/2012 682.8 CELL ULITIS AND ABSCESS OF OTHER SPECIFIED SITES 02/01/2012 530.81 GERD 02/01/2012 535.50 GAS TRITIS UNSPEC 02/01/2012 682.8 CELL ULITIS AND ABSCESS OF OTHER SPECIFIED SITES 02/01/2012 530.81 GERD 02/01/2012 535.50 GAS TRITIS UNSPEC 02/01/2012 682.8 CELL ULITIS AND ABSCESS OF OTHER SPECIFIED SITES 02/01/2012 WERMOTLEY NIA F 530 .81 GERD 02/01/2012 NIA MEREDITH DO F 535 .50 GASTRITIS UNSPEC 02/01/2012 WEREVARISTO DO NIA F 682 .8 CELLULITIS AND ABSCESS OF OTHER SPECIFIED SITES 02/01/2012 STEWART DO, EUNICE K 530.81 GERD 02/01/2012 STEWART DO, EUNICE K 535.50 GASTRITIS UNSPEC 02/01/2012 STEWART DO, EUNICE K 682.8 CELLULITIS AND ABSCESS OF OTHER SPECIFIED SITES 02/01/2012 STEWART DO, EUNICE K 530.81 GERD 02/01/2012 STEWART DO, EUNICE K 535.50 GASTRITIS UNSPEC 02/01/2012 STEWART DO, EUNICE K 682.8 CELLULITIS AND ABSCESS OF OTHER SPECIFIED SITES 02/01/2012 STEWART DO, EUNICE K 530.81 GERD 02/01/2012 STEWART DO, EUNICE K 535.50 GASTRITIS UNSPEC 02/01/2012 STEWART DO, EUNICE K 682.8 CELLULITIS AND ABSCESS OF OTHER SPECIFIED SITES 02/01/2012 EUNICE STEWART DO 530.81 GERD 02/01/2012 PAT ROJOEUNICE K 535.50 GASTRITIS UNSPEC 02/01/2012 EUNICE STEWART DO 682.8 CELLULITIS AND ABSCESS OF OTHER SPECIFIED SITES 03/14/2012 MASOUD ROJO NIA Arlyn 496 COPD 03/14/2012 496 COPD 03/14/2012 496 COPD 03/14/2012 YOVANY GARCIA APRN 496 COPD 03/14/2012 CHRIS ALLISON, RUSSELL N 496 COPD 03/14/2012 YANCY HDZ APRNIDI A 49 6 COPD 03/14/2012 496 COPD 03/14/2012 496 COPD 03/14/2012 496 COPD 03/14/2012 496 COPD 03/14/2012 TOMEVARISTO NIA Stoddard 496 COPD 03/14/2012 PAT ROJOEUNICE K 496 COPD 03/14/2012 STEWART EUNICE ROJO K 496 COPD 03/14/2012 PAT ROJOEUNICE K 496 COPD 03/14/2012 PAT ROJOEUNICE K 496 COPD 04/17/2012 MASOUD ROJO NIA Arlyn 301 .83 PD BORDERLINE 04/17/2012 MASOUD ROJO NIA Arlyn 307 .47 SI DYSSOMNIA NOS 04/17/2012 301.83 PD BORDERLINE 04/17/2012 307.47 SI DYSSOMNIA NOS 04/17/2012 301.83 PD BORDERLINE 04/17/2012 307.47 SI DYSSOMNIA NOS 04/17/2012 YOVANY GARCIA APRN 301.83 PD BORDERLINE 04/17/2012 YOVANY GARCIA APRN 307.47 SI DYSSOMNIA NOS 04/17/2012 CHRIS ALLISON RUSSELL N 301.83 PD BORDERLINE 04/17/2012 CHRIS ALLISON, RUSSELL N 307.47 SI DYSSOMNIA NOS 04/17/2012 SHARA HDZ APRN A 301.83 PD BORDERLINE 04/17/2012 YANCY HDZ APRNIDI A 307.47 SI DYSSOMNIA NOS 04/17/2012 301.83 PD BORDERLINE 04/17/2012 307.47 SI DYSSOMNIA NOS 04/17/2012 301.83 PD BORDERLINE 04/17/2012 307.47 SI DYSSOMNIA NOS 04/17/2012 301.83 PD BORDERLINE 04/17/2012 307.47 SI DYSSOMNIA NOS 04/17/2012 301.83 PD BORDERLINE 04/17/2012 307.47 SI DYSSOMNIA NOS 04/17/2012 TOMEVARISTO NIA F 301 .83 PD BORDERLINE 04/17/2012 WEREVARISTO DO NIA F 307 .47 SI DYSSOMNIA NOS 04/17/2012 STEWART DO, EUNICE K 301.83 PD BORDERLINE 04/17/2012 STEWART DO, EUNICE K 307.47 SI DYSSOMNIA NOS 04/17/2012 STEWART DO, EUNICE K 301.83 PD BORDERLINE 04/17/2012 STEWART DO, EUNICE K 307.47 SI DYSSOMNIA NOS 04/17/2012 STEWART DO, EUNICE K 301.83 PD BORDERLINE 04/17/2012 STEWART DO, EUNICE K 307.47 SI DYSSOMNIA NOS 04/17/2012 STEWART DO, EUNICE K 301.83 PD BORDERLINE 04/17/2012 STEWART DO, EUNICE K 307.47 SI DYSSOMNIA NOS 06/25/2012 YOVANY GARCIA APRN 780.52 INSOMNIA UNSPECIFIED 06/25/2012 RUSSELL PEREZ DDS 780.52 INSOMNIA UNSPECIFIED 06/25/2012 SHARA HDZ APRN A 780.52 INSOMNIA UNSPECIFIED 06/25/2012 780.52 INS OMNIA UNSPECIFIED 06/25/2012 780.52 INS OMNIA UNSPECIFIED 06/25/2012 780.52 INS OMNIA UNSPECIFIED 06/25/2012 780.52 INS OMNIA UNSPECIFIED 06/25/2012 NIA MEREDITH DO F 780 .52 INSOMNIA UNSPECIFIED 06/25/2012 STEWART DO, EUNICE K 780.52 INSOMNIA UNSPECIFIED 06/25/2012 STEWART DO, EUNICE K 780.52 INSOMNIA UNSPECIFIED 06/25/2012 STEWART DO, EUNICE K 780.52 INSOMNIA UNSPECIFIED 06/25/2012 STEWART DO, EUNICE K 780.52 INSOMNIA UNSPECIFIED 08/29/2012 YANCY HDZ APRNIDI A 278.00 OBESITY 08/29/2012 YANCY HDZ APRNIDI A 62 8.0 INFERTILITY FEMALE ASSOCIATED WITH ANOVULATION 08/29/2012 278.00 OBESITY 08/29/2012 628.0 INFE RTILITY FEMALE ASSOCIATED WITH ANOVULATION 08/29/2012 278.00 OBESITY 08/29/2012 628.0 INFE RTILITY FEMALE ASSOCIATED WITH ANOVULATION 08/29/2012 278.00 OBESITY 08/29/2012 628.0 INFE RTILITY FEMALE ASSOCIATED WITH ANOVULATION 08/29/2012 278.00 OBESITY 08/29/2012 628.0 INFE RTILITY FEMALE ASSOCIATED WITH ANOVULATION 08/29/2012 WERDER DO, NIA F 278 .00 OBESITY 08/29/2012 WERDER DO, NIA F 628 .0 INFERTILITY FEMALE ASSOCIATED WITH ANOVULATION 08/29/2012 STEWART DO, EUNICE K 278.00 OBESITY 08/29/2012 STEWART DO, EUNICE K 628.0 INFERTILITY FEMALE ASSOCIATED WITH ANOVULATION 08/29/2012 STEWART DO, EUNICE K 278.00 OBESITY 08/29/2012 STEWART DO, EUNICE K 628.0 INFERTILITY FEMALE ASSOCIATED WITH ANOVULATION 08/29/2012 STEWART DO, EUNICE K 278.00 OBESITY 08/29/2012 STEWART DO, EUNICE K 628.0 INFERTILITY FEMALE ASSOCIATED WITH ANOVULATION 08/29/2012 STEWART DO, EUNICE K 278.00 OBESITY 08/29/2012 STEWART DO, EUNICE K 628.0 INFERTILITY FEMALE ASSOCIATED WITH ANOVULATION 12/29/2012 682.2 CELL ULITIS AND ABSCESS OF TRUNK 12/29/2012 682.2 CELL ULITIS AND ABSCESS OF TRUNK 12/29/2012 TOMDER DO, NIA F 682 .2 CELLULITIS AND ABSCESS OF TRUNK 12/29/2012 STEWART DO, EUNICE K 682.2 CELLULITIS AND ABSCESS OF TRUNK 12/29/2012 STEWART DO, EUNICE K 682.2 CELLULITIS AND ABSCESS OF TRUNK 12/29/2012 STEWART DO, EUNICE K 682.2 CELLULITIS AND ABSCESS OF TRUNK 12/29/2012 STEWART DO, EUNICE K 682.2 CELLULITIS AND ABSCESS OF TRUNK 05/19/2013 STEWART DO, EUNICE K 379.91 periorbital eye pain 05/19/2013 STEWART DO, EUNICE K 709.8 Vesicle (___mm) 05/19/2013 STEWART DO, EUNICE K 784.0 HEADACHE 05/19/2013 STEWART DO EUNICE K 379.91 periorbital eye pain 05/19/2013 STEWART DO, EUNICE K 709.8 Vesicle (___mm) 05/19/2013 HEMANT STEWART DOA K 784.0 HEADACHE 05/19/2013 EUNICE STEWART DO K 379.91 periorbital eye pain 05/19/2013 HEMANT STEWART DOA K 709.8 Vesicle (___mm) 05/19/2013 HEMANT STEWART DOA K 784.0 HEADACHE 05/19/2013 EUNICE STEWART DO K 379.91 periorbital eye pain 05/19/2013 EUNICE STEWART DO K 709.8 Vesicle (___mm) 05/19/2013 HEMANT STEWART DOA K 784.0 HEADACHE 05/27/2013 HEMANT STEWART DOA K 311 DEPRESSIVE DISORDER NOT ELSEWHERE CLASSIFIED 05/27/2013 HEMANT STEWART DOA K 686.9 UNSPECIFIED LOCAL INFECTION OF SKIN AND SUBCUTANEOUS TISSUE 05/27/2013 HEMANT STEWART DOA K 780.4 DIZZINESS AND VERTIGO 05/27/2013 EUNICE STEWART DO K 311 DEPRESSIVE DISORDER NOT ELSEWHERE CLASSIFIED 05/27/2013 HEMANT STEWART DOA K 686.9 UNSPECIFIED LOCAL INFECTION OF SKIN AND SUBCUTANEOUS TISSUE 05/27/2013 HEMANT STEWART DOA K 780.4 DIZZINESS AND VERTIGO 05/27/2013 HEMANT STEWART DOA K 311 DEPRESSIVE DISORDER NOT ELSEWHERE CLASSIFIED 05/27/2013 HEMANT STEWART DOA K 686.9 UNSPECIFIED LOCAL INFECTION OF SKIN AND SUBCUTANEOUS TISSUE 05/27/2013 HEMANT STEWART DOA K 780.4 DIZZINESS AND VERTIGO 06/09/2013 HEMANT STEWART DOA K 383.1 CHRONIC MASTOIDITIS 06/09/2013 PAT ROJO EUNICE K 383.1 CHRONIC MASTOIDITIS Procedures Code Description Performed [place] [address] SLEE P STUDY 05/05/2012 87212 PSYC H PHARM MGMT 06/25/2012 16328 OXIM ETRY - OVERNIGHT 10/31/2012 79790 PSYC H DIAGNOSTIC EVALUATION 11/28/2012 26155 PSYC H DIAGNOSTIC EVALUATION 12/10/2012 96493 ROUT INE VENIPUNCTURE 05/19/2013 18818 MRI HEAD W/ AND W/OUT CONTRAST 05/19/2013 34235 CMP 05/19/2013 45362 CBC 05/19/2013 92719 ESR/ SED RATE 05/19/2013 15972 CRP 05/19/2013 Otolaryng ALVA FARRELL 05/27/2013 18965 ROUT INE VENIPUNCTURE 06/09/2013 36132 CBC 06/09/2013 Results There is no data. Encounters ACCT No. Visit Date/Time Discharge Status Pt. Type Provider Facility Loc./Unit Complaint [id number] 06/09/2013 12:22:00 06/09/2013 23:59: 59 CLS Outpatient EUNICE STEWART DO [id number] 06/09/2013 12:22:00 06/09/2013 23:59: 59 CLS Outpatient EUNICE STEWART DO [id number] 05/27/2013 14:52:00 05/27/2013 23:59: 59 CLS Outpatient EUNICE STEWART DO [id number] 05/19/2013 12:19:00 05/19/2013 23:59: 59 CLS Outpatient EUNICE STEWART DO [id number] 03/03/2013 14:56:00 03/03/2013 23:59: 59 CLS Outpatient NIA MEREDITH DO [id number] 08/29/2012 13:47:00 08/29/2012 23:59: 59 CLS Outpatient SHARA HDZ APRN [id number] 07/04/2012 08:46:00 07/04/2012 23:59: 59 CLS Outpatient RUSSELL PEREZ DDS [id number] 06/25/2012 15:17:00 06/25/2012 23:59: 59 CLS Outpatient YOVANY GARCIA APRN [id number] 06/05/2012 14:58:00 06/05/2012 23:59: 59 CLS Outpatient [id number] 05/01/2012 10:00:00 05/01/2012 23:59: 59 CLS Outpatient [id number] 05/01/2012 10:00:00 05/01/2012 23:59:5 9 CLS Outpatient NIA MEREDITH DO [id number] 01/12/2013 08:54:00 Document Registration [id number] 12/29/2012 15:47:00 Document Registration [id number] 11/27/2012 09:55:00 Document Registration [id number] 11/05/2012 11:30:00 Document Registration
== END 2019-12-15 17:45 | disposition home or self-care (01) ==
LOC: EDUNIT# 16:21 → ER 16:22
DX: F41.9 Anxiety disorder, unspecified (principal); J45.909 Unspecified asthma, uncomplicated; F17.210 Nicotine dependence, cigarettes, uncomplicated; Z88.6 Allergy status to analgesic agent; Z88.8 Allergy status to other drugs, medicaments and biological substances; Z91.040 Latex allergy status; Z79.52 Long term (current) use of systemic steroids
CPT/HCPCS: 99283